=== PATIENT | male | born 1935 | race Caucasian/White ===

== ENCOUNTER 2024-03-16 22:08 | Inpatient (IN) | payer MEDICARE, OTHER ==
[~2024-03-16] VITALS: Ht 185.4 cm; Wt 94.8 kg
[2024-03-16] MEDS ORDERED: ONDANSETRON HCL/PF 4 MG/2 ML VIAL ONE (22:57)
[2024-03-16] MEDS: ONDANSETRON HCL/PF - ER 4 MG/2 ML VIAL IV ONE (22:58)
[2024-03-16] MEDS: IV NS 0.9% 1,000 ML IV ONE (22:58)
[2024-03-16 23:14] LABS: BASOPHILS % (AUTO) 0.2 % (0.0-2.0); EOSINOPHILS % (AUTO) 0.1 % (0.0-6.0); HEMATOCRIT 40 % (39-51); HEMOGLOBIN 13.9 g/dL (13.5-17.5); LYMPHOCYTES # (AUTO) 0.5 K/uL (0.8-4.8); LYMPHOCYTES % (AUTO) 7.6 % (20.0-44.0); MEAN CORPUSCULAR HEMOGLOBIN 33 PG (26.0-33.0); MEAN CORPUSCULAR HGB CONC 35 g/dl (31.0-36.0); MEAN CORPUSCULAR VOLUME 95 fL (80-96); MONOCYTES # (AUTO) 0.6 K/uL (0.1-1.30); MONOCYTES % (AUTO) 9.3 % (2.0-12.0); NEUTROPHILS # (AUTO) 5.5 K/uL (1.8-8.9); NEUTROPHILS % (AUTO) 82.8 % (43.0-81.0); PLATELET COUNT (AUTO) 74 K/uL (150-450); RED BLOOD CELL COUNT(AUTO) 4.24 MIL/uL (4.5-6.0); RED CELL DISTRIBUTION WIDTH 13.4 % (11.5-15.0); WHITE BLOOD COUNT (AUTO) 6.7 K/uL (4.3-11.0)
[2024-03-16 23:28] LABS: CALCIUM, SERUM 8.4 mg/dL (8.5-10.1); POTASSIUM 4.1 mmol/L (3.5-5.1)
[2024-03-16 23:42] LABS: ALBUMIN 2.9 g/dL (3.4-5.0); TOTAL PROTEIN, SERUM 6.3 g/dL (6.4-8.2)
[2024-03-16 23:44] LABS: LACTIC ACID 1.1 mmol/L (0.4-2.0)
[2024-03-16 23:58] LABS: APPEARANCE,URINE CLEAR (CLEAR); BILIRUBIN,URINE NEGATIVE (NEGATIVE); BLOOD, URINE NEGATIVE Ery/uL (NEGATIVE); COLOR,URINE YELLOW (YELLOW); KETONES,URINE NEGATIVE (NEGATIVE); LEUKOCYTE ESTERASE ,URINE NEGATIVE (NEGATIVE); NITRITE, URINE NEGATIVE (NEGATIVE); PH,URINE 5.5 (5.0-8.0); PROTEIN,URINE 1+ mg/dl (NEGATIVE); UGLUCOSE NEGATIVE (NEGATIVE)
[2024-03-17] VITALS (11 sets, daily range): BP systolic 122–173; BP diastolic 60–81; TEMP 97.9–98.2; O2SAT 94–100
[2024-03-17] MEDS ORDERED: MAG HYDROX/AL HYDROX/SIMETH 30 ML UDC PO PRN (05:30)
[2024-03-17] MEDS ORDERED: ONDANSETRON HCL/PF 4 MG/2 ML VIAL IVP PRN (05:30)
[2024-03-17] MEDS ORDERED: MAGNESIUM HYDROXIDE 30 ML UDC PO PRN (05:30)
[2024-03-17] MEDS ORDERED: Z GUARD REMEDY 4 OZ OINT TP PRN (05:30)
[2024-03-17] MEDS ORDERED: ZOLPIDEM TARTRATE 5 MG TABLET PO PRN (05:30)
[2024-03-17] MEDS: PANTOPRAZOLE 40 MG TABLET.DR PO SCH (08:11)
[2024-03-17] MEDS ORDERED: GABA-532 PO (10:27)
[2024-03-17] MEDS ORDERED: SERT100T PO (10:27)
[2024-03-17] MEDS ORDERED: METO25TA6 PO (10:27)
[2024-03-17] MEDS ORDERED: VIT1CAPS9 PO (10:27)
[2024-03-17] MEDS ORDERED: TAMS-12 PO (10:27)
[2024-03-17] MEDS ORDERED: ATOR20TA PO (10:27)
[2024-03-17] MEDS ORDERED: ASPI-1169 PO (10:27)
[2024-03-17 11:35] LABS: THYROID STIMULATING HORMONE 2.024 uIU/mL (0.358-3.74)
[2024-03-17] MEDS: AZITHROMYCIN 500 MG in IV D5W 250 ML IV SCH (16:59)
[2024-03-17] MEDS: GABAPENTIN 100 MG CAPSULE PO SCH (16:59)
[2024-03-17] MEDS: IPRATROPIUM NEB FS 0.5 MG/2.5 ML AMPUL.NEB NEB SCH (17:38)
[2024-03-17] MEDS: ALBUTEROL FS 2.5 MG/0.5 ML VIAL.NEB NEB SCH (17:38)
[2024-03-17] MEDS: SERTRALINE HCL 50 MG TABLET PO SCH (21:26)
[2024-03-18] VITALS (14 sets, daily range): BP systolic 112–159; BP diastolic 61–77; TEMP 98.6–101.1; O2SAT 93–100
[2024-03-18] MEDS: ACETAMINOPHEN 325 MG TABLET PO PRN (00:38)
[2024-03-18 07:30] LABS: BASOPHILS % (AUTO) 0.1 % (0.0-2.0); EOSINOPHILS % (AUTO) 0.3 % (0.0-6.0); HEMATOCRIT 38 % (39-51); LYMPHOCYTES # (AUTO) 0.5 K/uL (0.8-4.8); LYMPHOCYTES % (AUTO) 15.2 % (20.0-44.0); MEAN CORPUSCULAR HEMOGLOBIN 33 PG (26.0-33.0); MEAN CORPUSCULAR HGB CONC 35 g/dl (31.0-36.0); MEAN CORPUSCULAR VOLUME 95 fL (80-96); MONOCYTES # (AUTO) 0.5 K/uL (0.1-1.30); MONOCYTES % (AUTO) 15.4 % (2.0-12.0); NEUTROPHILS # (AUTO) 2.4 K/uL (1.8-8.9); PLATELET COUNT (AUTO) 76 K/uL (150-450); RED BLOOD CELL COUNT(AUTO) 3.98 MIL/uL (4.5-6.0); RED CELL DISTRIBUTION WIDTH 13.8 % (11.5-15.0); WHITE BLOOD COUNT (AUTO) 3.5 K/uL (4.3-11.0)
[2024-03-18 07:56] LABS: CHOLESTEROL 108 mg/dL (<200); HDL CHOLESTEROL 47 mg/dL (40-60); LDL 49 mg/dL (0-99); TRIGLYCERIDES 64 mg/dL (30-150)
[2024-03-18] MEDS: ASPIRIN 81 MG TAB.CHEW PO SCH (08:35)
[2024-03-18] MEDS: MULTIVITAMIN/LUTEIN/MINERALS 1 TAB PO SCH (08:35)
[2024-03-18] MEDS: ATORVASTATIN 10 MG TABLET PO SCH (08:35)
[2024-03-18] MEDS: TAMSULOSIN 0.4 MG CAP.SR.24H PO SCH (08:36)
[2024-03-18] MEDS: METOPROLOL TARTRATE 25 MG TABLET PO SCH (08:37)
[2024-03-18 10:11] LABS: CALCIUM, SERUM 7.9 mg/dL (8.5-10.1); CARBON DIOXIDE 23 mmol/L (21-32); CHLORIDE 102 mmol/L (98-107); GLUCOSE 111 mg/dL (74-106); MAGNESIUM 2.4 mg/dL (1.8-2.4); PHOSPHORUS 2.7 mg/dL (2.5-4.9); POTASSIUM 4.2 mmol/L (3.5-5.1); SODIUM SERUM 136 mmol/L (136-145); UREA NITROGEN, BLOOD 18 mg/dL (7-18)
[2024-03-18 11:53] LABS: BASOPHILS % (MANUAL) 0 % (0.0-2.0); EOSINOPHILS % (MANUAL) 0 % (0-4); LYMPHOCYTES % (MANUAL) 13 % (16-48); MONOCYTES % (MANUAL) 11 % (0-11.0); NEUTROPHILS % (MANUAL) 76 (42-76); PLATELET ESTIMATE DECREASED
[2024-03-18] MEDS: IPRATROPIUM NEB FS 0.5 MG/2.5 ML AMPUL.NEB NEB SCH (13:24)
[2024-03-18] MEDS: ALBUTEROL FS 2.5 MG/0.5 ML VIAL.NEB NEB SCH (13:25)
[2024-03-18] MEDS: ENOXAPARIN SODIUM 40 MG/0.4 ML DISP.SYRIN SQ SCH (15:51)
[2024-03-19] VITALS (13 sets, daily range): BP systolic 126–140; BP diastolic 61–70; TEMP 98.7–99.9; O2SAT 93–98
[2024-03-19 10:08] LABS: ABG BASE EXCESS 1.9 mmol/L; ABG OXYGEN SATURATION 86.2 % (92.0-98.5); ABG PCO2 37.8 mmHg (35.0-45.0); ABG PH 7.451 (7.350-7.450); ABG PO2 47.8 mmHg (75.0-100.0); ABG TOTAL HEMOGLOBIN 13.7 G/dL (13.5-18.0); AaDO2 56.7 mmHg; MetHb 0.1 % (0.0-1.5); O2Hb 85.3 % (94.0-97.0); SITE, ABG Left Radial; VENT MODE, BG ROOM AIR
[2024-03-19] MEDS ORDERED: MORPHINE SULFATE INJ 2 MG/ML DISP.SYRIN IV PRN (21:30)
[2024-03-20] VITALS (12 sets, daily range): BP systolic 126–148; BP diastolic 59–78; TEMP 98–99; O2SAT 91–98
[2024-03-21] VITALS (11 sets, daily range): BP systolic 128–149; BP diastolic 55–70; TEMP 97.6–100; O2SAT 91–98
[2024-03-21] MEDS: AZITHROMYCIN 250 MG TABLET PO ONE (16:22)
[2024-03-22] VITALS (14 sets, daily range): BP systolic 134–143; BP diastolic 60–73; TEMP 98.5–99.2; O2SAT 85–97
[2024-03-22] MEDS: CEFTRIAXONE 1 G in IV D5W 50 ML IV SCH (09:28)
[2024-03-22 12:58] LABS: ABG BASE EXCESS 6.3 mmol/L; ABG OXYGEN SATURATION 91.4 % (92.0-98.5); ABG PCO2 40.8 mmHg (35.0-45.0); ABG PH 7.487 (7.350-7.450); ABG TOTAL HEMOGLOBIN 15.3 G/dL (13.5-18.0); AaDO2 152.4 mmHg; COHb 1.1 % (0.5-1.5); MetHb 0.1 % (0.0-1.5); O2Hb 90.3 % (94.0-97.0); SITE, ABG Right Radial; VENT MODE, BG 4 LPM NC
[2024-03-22 14:01] LABS: ABG BASE EXCESS 6.6 mmol/L; ABG OXYGEN SATURATION 84.2 % (92.0-98.5); ABG PCO2 41.8 mmHg (35.0-45.0); ABG PH 7.483 (7.350-7.450); ABG PO2 45.6 mmHg (75.0-100.0); ABG TOTAL HEMOGLOBIN 13.1 G/dL (13.5-18.0); AaDO2 54.1 mmHg; COHb 0.8 % (0.5-1.5); MetHb 0.1 % (0.0-1.5); O2Hb 83.4 % (94.0-97.0); SITE, ABG Left Radial; VENT MODE, BG RA 21%
[2024-03-23] VITALS (12 sets, daily range): BP systolic 135–143; BP diastolic 59–83; TEMP 98.1–99.5; O2SAT 92–97
[2024-03-24] VITALS (12 sets, daily range): BP systolic 124–142; BP diastolic 68–85; TEMP 98.1–98.6; O2SAT 89–96
[2024-03-24 07:00] LABS: BASOPHILS % (AUTO) 0.3 % (0.0-2.0); EOSINOPHILS # (AUTO) 0.1 K/uL (0.0-0.7); EOSINOPHILS % (AUTO) 1.4 % (0.0-6.0); HEMATOCRIT 37 % (39-51); HEMOGLOBIN 12.3 g/dL (13.5-17.5); LYMPHOCYTES # (AUTO) 0.5 K/uL (0.8-4.8); MEAN CORPUSCULAR HEMOGLOBIN 32 PG (26.0-33.0); MEAN CORPUSCULAR HGB CONC 33 g/dl (31.0-36.0); MEAN CORPUSCULAR VOLUME 96 fL (80-96); MONOCYTES # (AUTO) 0.4 K/uL (0.1-1.30); MONOCYTES % (AUTO) 5.8 % (2.0-12.0); NEUTROPHILS # (AUTO) 5.1 K/uL (1.8-8.9); NEUTROPHILS % (AUTO) 84.5 % (43.0-81.0); PLATELET COUNT (AUTO) 160 K/uL (150-450); RED BLOOD CELL COUNT(AUTO) 3.86 MIL/uL (4.5-6.0); RED CELL DISTRIBUTION WIDTH 14.5 % (11.5-15.0); WHITE BLOOD COUNT (AUTO) 6.1 K/uL (4.3-11.0)
[2024-03-24 14:37] LABS: ABG BASE EXCESS 8.2 mmol/L; ABG PCO2 43.5 mmHg (35.0-45.0); ABG PH 7.491 (7.350-7.450); ABG TOTAL HEMOGLOBIN 13.3 G/dL (13.5-18.0); AaDO2 173.2 mmHg; COHb 0.7 % (0.5-1.5); MetHb 0.2 % (0.0-1.5); O2Hb 91.2 % (94.0-97.0); SITE, ABG Right Radial; VENT MODE, BG Nasal Cannula
[2024-03-25] VITALS (10 sets, daily range): BP systolic 130–140; BP diastolic 61–68; TEMP 98.2–99.7; O2SAT 93–97
[2024-03-25 12:18] LABS: CALCIUM, SERUM 7.6 mg/dL (8.5-10.1); CREATININE 0.9 mg/dL (0.6-1.3)
[2024-03-25 13:19] LABS: BASOPHILS % (AUTO) 0.3 % (0.0-2.0); EOSINOPHILS # (AUTO) 0.1 K/uL (0.0-0.7); EOSINOPHILS % (AUTO) 2.4 % (0.0-6.0); HEMATOCRIT 36 % (39-51); HEMOGLOBIN 12.2 g/dL (13.5-17.5); LYMPHOCYTES # (AUTO) 0.5 K/uL (0.8-4.8); LYMPHOCYTES % (AUTO) 8.6 % (20.0-44.0); MEAN CORPUSCULAR HEMOGLOBIN 33 PG (26.0-33.0); MEAN CORPUSCULAR HGB CONC 34 g/dl (31.0-36.0); MEAN CORPUSCULAR VOLUME 95 fL (80-96); MONOCYTES # (AUTO) 0.4 K/uL (0.1-1.30); NEUTROPHILS # (AUTO) 4.4 K/uL (1.8-8.9); NEUTROPHILS % (AUTO) 81.7 % (43.0-81.0); PLATELET COUNT (AUTO) 191 K/uL (150-450); RED BLOOD CELL COUNT(AUTO) 3.75 MIL/uL (4.5-6.0); RED CELL DISTRIBUTION WIDTH 14.1 % (11.5-15.0); WHITE BLOOD COUNT (AUTO) 5.4 K/uL (4.3-11.0)
[2024-03-25] MEDS: POTASSIUM CHLORIDE 20 MEQ POWDER PACKET PO ONE ×2 (16:45→20:01)
[2024-03-26] VITALS (12 sets, daily range): BP systolic 114–141; BP diastolic 64–76; TEMP 97.8–98.8; O2SAT 93–98
[2024-03-26 12:00] LABS: ABG BASE EXCESS 3.5 mmol/L; ABG PCO2 43.3 mmHg (35.0-45.0); ABG PH 7.432 (7.350-7.450); ABG PO2 66.4 mmHg (75.0-100.0); AaDO2 111.1 mmHg; COHb 0.6 % (0.5-1.5); MetHb 0.2 % (0.0-1.5); O2Hb 92.3 % (94.0-97.0); SITE, ABG Right Radial; VENT MODE, BG NASAL CANNULA
[2024-03-27] VITALS (12 sets, daily range): BP systolic 136–160; BP diastolic 64–74; TEMP 98.1–98.7; O2SAT 92–99
[2024-03-28] VITALS (12 sets, daily range): BP systolic 110–137; BP diastolic 60–75; TEMP 98–98.4; O2SAT 92–100
[2024-03-29] VITALS (9 sets, daily range): BP systolic 137–140; BP diastolic 63–68; TEMP 97–98.2; O2SAT 94–99
== END 2024-03-29 16:17 | disposition home health service (06) | DRG 202 ==
LOC: ER 22:26 → TELE1 03-17 05:04 → MEDSG1 03-18 09:48
PROVIDERS: ADMIT Nurse Practitioner Family; ATTEND Nurse Practitioner Family
DX: J20.9 Acute bronchitis, unspecified (principal); J96.01 Acute respiratory failure with hypoxia; I50.32 Chronic diastolic (congestive) heart failure; I11.0 Hypertensive heart disease with heart failure; E78.5 Hyperlipidemia, unspecified; K80.20 Calculus of gallbladder without cholecystitis without obstruction; Z79.82 Long term (current) use of aspirin; Z79.899 Other long term (current) drug therapy; H91.13 Presbycusis, bilateral; J98.4 Other disorders of lung; D69.6 Thrombocytopenia, unspecified; F32.A Depression, unspecified; N40.0 Benign prostatic hyperplasia without lower urinary tract symptoms; G62.9 Polyneuropathy, unspecified; J84.10 Pulmonary fibrosis, unspecified; R54 Age-related physical debility; F09 Unspecified mental disorder due to known physiological condition
CPT/HCPCS: 36415; 36600; 71045-TC; 80048-TC; 80053-TC; 80061-TC; 82803-TC; 83605-TC; 83690-TC; 83735-TC; 83880; 84100-TC; 84439-TC; 84443-TC; 84484-TC; 85025-TC; 87040-TC; 93307-TC; 93970-TC; 94760-TC; 94761-TC; 94762-TC; 94799-TC; 97110-TC; 97112-TC; 97116-TC; 97530-TC; A4223; G0378; J0456; J0696; J1650; J2405; J7050; J7060